=== PATIENT | male | born 1940 | race Caucasian/White ===

== ENCOUNTER 2016-06-24 04:38 | Inpatient (IN) | payer MEDICARE, BC ==
[2016-06-24] MEDS ORDERED: TYLENOL325 M2 PO (06:30)
[2016-06-24] MEDS ORDERED: VITAMIN C500 M3 PO (06:48)
[2016-06-24] MEDS ORDERED: IRBESARTAN300 M1 PO (06:49)
[2016-06-24] MEDS ORDERED: TOPROL XL50 M1 PO (06:49)
[2016-06-24] MEDS ORDERED: NITROGLYCERIN0.4 M2 SL (06:52)
[2016-06-24] MEDS ORDERED: ASPIRIN EC81 MG PO (10:58)
[2016-06-25 05:41] LABS: BASO % 0.3 % (0-2); EOS % 0.8 % (0-7); EOSINOPHIL ABSOLUTE COUNT 0.1 tho/cmm (0.0-0.7); HCT-HEMATOCRIT 46.2 % (36.0-53.5); HGB-HEMOGLOBIN 15.5 gm/dl (13.5-17.0); IMMATURE GRANULOCYTES ABSOLUTE 0.04 tho/cmm (0-0.03); IMMATURE GRANULOCYTES PERCENT 0.4 % (0-0.3); LYMPH % 19.3 % (20-45); LYMPH ABSOLUTE COUNT 2.2 tho/cmm (0.8-4.5); MCH (MEAN CORPUSCULAR HGB) 29.9 pg (28.0-32.0); MCHC MEAN CORPUSCULAR HGB CONC 33.5 % (32.0-36.0); MEAN PLATELET VOLUME 10.3 cmc (9.4-12.4); MONO % 15.1 % (0-12); MONOCYTE ABSOLUTE COUNT 1.7 tho/cmm (0.0-1.2); NEUTROPHIL ABSOLUTE COUNT 7.2 tho/cmm (1.6-8.0); NEUTROPHIL-AUTOMATED 7.2 tho/cmm (1.6-8.0); NEUTROPHILS % 64.1 % (40-80); PLATELET COUNT 228 tho/cmm (150-450); RED BLOOD COUNT 5.19 mil/cmm (4.40-5.70); RED CELL DISTRIBUTION WIDTH 13.9 % (12.4-16.4); WHITE BLOOD COUNT 11.2 tho/cmm (4.0-10.0)
[2016-06-25 05:57] LABS: ANION GAP 11 mmol/L (0-20); BLOOD UREA NITROGEN 21 mg/dl (6-24); CALCIUM 8.3 mg/dl (8.5-10.5); CARBON DIOXIDE-VENOUS 27 mmol/L (22-32); CHLORIDE 109 mmol/l (96-110); CREATININE 1.37 mg/dl (0.60-1.30); GLUCOSE 101 mg/dL (70-110); POTASSIUM 4.8 mmol/L (3.7-5.1); SODIUM 142 mmol/L (135-145); eGFR VALUE FOR BLACK 58 mL/Min
--- NOTE | 2016-06-25 18:58 | NUR ---
AGREE WITH STUDENT NURSES ASSESSMENT. MADE EDITS NEEDED.
--- NOTE | 2016-06-25 18:59 | NUR ---
NOTIFIED DR GARCIA OF LOW HEART RATES AND AV BLOCK. EP WAS CONSULTED.
[2016-06-26 04:36] LABS: ANION GAP 11 mmol/L (0-20); BLOOD UREA NITROGEN 15 mg/dl (6-24); CALCIUM 7.7 mg/dl (8.5-10.5); CARBON DIOXIDE-VENOUS 28 mmol/L (22-32); CHLORIDE 108 mmol/l (96-110); CREATININE 0.93 mg/dl (0.60-1.30); GLUCOSE 87 mg/dL (70-110); SODIUM 143 mmol/L (135-145); eGFR VALUE FOR BLACK >90 mL/Min
[2016-06-26 04:44] LABS: POTASSIUM 3.7 mmol/L (3.7-5.1)
[2016-06-26 14:44] LABS: BASO % 0.4 % (0-2); EOS % 1.3 % (0-7); EOSINOPHIL ABSOLUTE COUNT 0.1 tho/cmm (0.0-0.7); HCT-HEMATOCRIT 44.4 % (36.0-53.5); HGB-HEMOGLOBIN 15.3 gm/dl (13.5-17.0); IMMATURE GRANULOCYTES ABSOLUTE 0.01 tho/cmm (0-0.03); IMMATURE GRANULOCYTES PERCENT 0.1 % (0-0.3); LYMPH % 17.8 % (20-45); LYMPH ABSOLUTE COUNT 1.5 tho/cmm (0.8-4.5); MCHC MEAN CORPUSCULAR HGB CONC 34.5 % (32.0-36.0); MCV (MEAN CELL VOLUME) 87.1 fl (82.0-96.0); MEAN PLATELET VOLUME 10.6 cmc (9.4-12.4); MONO % 17.1 % (0-12); MONOCYTE ABSOLUTE COUNT 1.5 tho/cmm (0.0-1.2); NEUTROPHIL ABSOLUTE COUNT 5.4 tho/cmm (1.6-8.0); NEUTROPHIL-AUTOMATED 5.4 tho/cmm (1.6-8.0); NEUTROPHILS % 63.3 % (40-80); PLATELET COUNT 237 tho/cmm (150-450); RED CELL DISTRIBUTION WIDTH 13.3 % (12.4-16.4); WHITE BLOOD COUNT 8.6 tho/cmm (4.0-10.0)
[2016-06-26 15:05] LABS: TSH-THYROID STIMULATING HORM. 2.32 uIU/ml (0.40-3.80)
[2016-06-27 00:13] LABS: URINE BILIRUBIN NEGATIVE (NEG); URINE BLOOD MODERATE (NEG); URINE GLUCOSE (UA) NEGATIVE (NEG); URINE KETONE MODERATE (NEG); URINE LEUKOCYTE ESTERASE NEGATIVE (NEG); URINE NITRITE NEGATIVE (NEG); URINE PROTEIN NEGATIVE (NEG)
[2016-06-27 00:14] LABS: URINE APPEARANCE SLIGHTLY HAZY; URINE COLOR YELLOW
[2016-06-27 00:27] LABS: URINE WBC 0 /[HPF] (0-5)
[2016-06-27 00:28] LABS: URINE EPITHELIAL CELLS 0 /[HPF] (0-10)
[2016-06-27] MEDS ORDERED: LIPITOR20 M1 PO (11:21)
[2016-06-27] MEDS ORDERED: PLAVIX75 M1 PO (11:21)
[2016-06-27] MEDS ORDERED: NORVASC5 M2 PO (11:24)
== END 2016-06-27 15:15 | disposition home health service (06) | DRG 248 ==
LOC: PCUA 04:38
PROVIDERS: Internal Medicine Interventional Cardiology; Nurse Practitioner Family; ADMIT Internal Medicine Cardiovascular Disease
PROC: B246ZZZ Ultrasonography of Right and Left Heart (ICD-10-PCS; 2016-06-24)
PROC: 3E0F7GC Introduction of Other Therapeutic Substance into Respiratory Tract, Via Natural or Artificial Opening (ICD-10-PCS; 2016-06-24)
PROC: B2111ZZ Fluoroscopy of Multiple Coronary Arteries using Low Osmolar Contrast (ICD-10-PCS; principal; 2016-06-25)
PROC: 4A023N7 Measurement of Cardiac Sampling and Pressure, Left Heart, Percutaneous Approach (ICD-10-PCS; principal; 2016-06-25)
PROC: B2181ZZ Fluoroscopy of Left Internal Mammary Bypass Graft using Low Osmolar Contrast (ICD-10-PCS; principal; 2016-06-25)
PROC: B2121ZZ Fluoroscopy of Single Coronary Artery Bypass Graft using Low Osmolar Contrast (ICD-10-PCS; principal; 2016-06-25)
PROC: 02713EZ Dilation of Coronary Artery, Two Arteries with Two Intraluminal Devices, Percutaneous Approach (ICD-10-PCS; principal; 2016-06-25)
PROC: B54DZZZ Ultrasonography of Bilateral Lower Extremity Veins (ICD-10-PCS; 2016-06-26)
DX: I21.3 ST elevation (STEMI) myocardial infarction of unspecified site (principal); G93.40 Encephalopathy, unspecified; F05 Delirium due to known physiological condition; F03.90 Unspecified dementia, unspecified severity, without behavioral disturbance, psychotic disturbance, mood disturbance, and anxiety; I13.10 Hypertensive heart and chronic kidney disease without heart failure, with stage 1 through stage 4 chronic kidney disease, or unspecified chronic kidney disease; I44.1 Atrioventricular block, second degree; I49.5 Sick sinus syndrome; I25.10 Atherosclerotic heart disease of native coronary artery without angina pectoris; Z91.81 History of falling; I48.0 Paroxysmal atrial fibrillation; G47.33 Obstructive sleep apnea (adult) (pediatric); E78.5 Hyperlipidemia, unspecified; R06.6 Hiccough; Z95.1 Presence of aortocoronary bypass graft; F32.9 Major depressive disorder, single episode, unspecified; N18.9 Chronic kidney disease, unspecified; F41.9 Anxiety disorder, unspecified; M11.20 Other chondrocalcinosis, unspecified site; I73.9 Peripheral vascular disease, unspecified; J44.9 Chronic obstructive pulmonary disease, unspecified; N40.0 Benign prostatic hyperplasia without lower urinary tract symptoms; Z86.73 Personal history of transient ischemic attack (TIA), and cerebral infarction without residual deficits
CPT/HCPCS: G0378; G8978-GO-CK; G8978-GP-CK; G8979-GO-CJ; G8979-GP-CJ; G8980-GO-CK; G8996-GN-CJ; G8997-GN-CJ; G8998-GN-CJ; J0461; J1644; J2250; J7030; Q9967